=== PATIENT | female | born 1955 | race Caucasian/White ===

== ENCOUNTER 2017-02-15 09:04 | Emergency (ER) | payer OTHER ==
[2017-02-15] MEDS ORDERED: KETOROLAC TROMETHAMINE 60 MG/2 ML VIAL ONE (09:26)
--- NOTE | 2017-02-15 09:57 | CT ---
L-SPINE W/O CON HISTORY: Back and left leg pain, particularly within the hip. No known injury. COMPARISONS: CT abdomen pelvis 04/25/2014 TECHNIQUE: Contiguous axial 2 mm images of the lumbar spine are obtained without IV contrast. Sagittal and coronal reformations are also obtained this time. CTDI: 63.8 DLP: 1673.4 FINDINGS: No fracture or dislocation. Sagittal alignment is intact. Minimal endplate hypertrophy is noted at multiple levels. Mild facet disease is noted at the lumbosacral junction. Evaluation of the thecal contents is limited given the inherent spatial and contrast resolution limitations of CT the no gross abnormality is identified. Neural foramina are widely patent. Regional soft tissues are intact. IMPRESSION: No fracture or dislocation. Degenerative changes as above. Report was uploaded to the electronic medical record at approximately 0 953 hours on 02/15/2017.
[2017-02-15 12:00] LABS: SPECIFIC GRAVITY 1.015 (1.001-1.030); URINE BILIRUBIN NEGATIVE (NEGATIVE); URINE BLOOD NEGATIVE (NEGATIVE); URINE GLUCOSE (UA) NEGATIVE (NEGATIVE); URINE LEUKOCYTE ESTERASE NEGATIVE (NEGATIVE); URINE NITRITE NEGATIVE (NEGATIVE); URINE PROTEIN NEGATIVE (NEGATIVE); URINE UROBILINOGEN NORMAL (0-1 mg/dl)
[2017-02-15 12:04] LABS: URINE APPEARANCE CLEAR; URINE COLOR YELLOW
== END 2017-02-15 12:13 | disposition home or self-care (01) ==
LOC: ED 09:04
DX: S39.92XA Unspecified injury of lower back, initial encounter (principal); E03.9 Hypothyroidism, unspecified; I10 Essential (primary) hypertension; K58.9 Irritable bowel syndrome, unspecified; X50.0XXA Overexertion from strenuous movement or load, initial encounter; Y93.E8 Activity, other personal hygiene; Y92.002 Bathroom of unspecified non-institutional (private) residence as the place of occurrence of the external cause
CPT/HCPCS: 81003; 72131; 99283 ×2; 96372; J1885